=== PATIENT | male | born 1965 | race African-American/Black ===

== ENCOUNTER 2017-03-01 22:31 | Emergency (ER) | payer OTHER ==
--- NOTE | 2017-03-01 22:35 | PDOC ---
Rapid Medical Evaluation Time Seen by Provider: 03/01/17 22:33 Medical Evaluation: 03/01/17 22:33 I have performed a brief in-person evaluation of this patient. The patient presents with a chief complaint of: Sore throat w/ Subjective Fever. Pertinent physical exam findings: n/a I have ordered the following: Rapid Strep/ Throat culture. The patient will proceed to the ED for further evaluation.
[2017-03-01 22:36] VITALS: BP 104/76; PULSE 77; TEMP 97.8; BMI 37.6
--- NOTE | 2017-03-01 23:33 | PDOC ---
History of Present Illness - General Chief Complaint: Sore Throat Stated Complaint: SORE THROAT Time Seen by Provider: 03/01/17 23:23 History Source: Patient Exam Limitations: No Limitations - History of Present Illness Initial Comments: 03/01/17 23:29 51yo Male patient with no significant past medical history presents to ED c/o sore throat. Patient state while at this familys house he felt a sharp pain in his throat that radiated down into his chest. Patient reports symptoms worsen when he lies down. He denies smoking, drug use, alcohol use, recent illness, illness exposure, CP, Abd pain, n/v/d, fever, or any other complaints at this time. Timing/Duration: 24 hours Severity: moderate Modifying Factors: worse with: cold therapy, eating, immobilization, medication , movement, rest, other Associated Symptoms: denies: denies symptoms, chest pain, cough, diaphoresis, fever/chills, headaches, loss of appetite, malaise, nausea/vomiting, rash, seizure, shortness of breath, syncope, weakness, other Aspirin Received prior to arrival: No: no aspirin today, unknown, 81 mg x 1, 81 mg x 2, 81 mg x 3, 81 mg x 4, 325 mg x 1, provided at home, provided by EMS, provided by ED Past History - Travel Traveled outside of the country in the last 30 days: No Close contact w/someone who was outside of country & ill: No - Past Medical History Allergies/Adverse Reactions: Allergies Allergy/AdvReac Type Severity Reaction Status Date / Time No Known Allergies Allergy Verified 03/01/17 22:36 Home Medications: Ambulatory Orders Azithromycin [Zithromax -] 250 mg PO DAILY #4 tablet 03/02/17 Pantoprazole Sodium [Protonix] 40 mg PO DAILY #30 tablet. 03/02/17 COPD: No Other medical history: denies - Suicide/Smoking/Psychosocial Hx Smoking History: Never smoked Review of Systems - Review of Systems Able to Perform ROS?: Yes Is the patient limited Lithuanian proficient: No Constitutional: No: Chills, Fever HEENTM: Yes: Throat Pain. No: Symptoms Reported, See HPI, Eye Pain, Blurred Vision, Tearing, Recent change in vision, Double Vision, Cataracts, Ear Pain, Ocular Prothesis, Ear Discharge, Nose Pain, Nose Congestion, Tinnitus, Nose Bleeding, Hearing Loss, Throat Swelling, Mouth Pain, Dental Problems, Difficulty Swallowing, Mouth Swelling, Other All Other Systems: Reviewed and Negative *Physical Exam - Vital Signs Last Vital Signs Temp Pulse Resp BP Pulse Ox 97.8 F 77 18 104/76 99 03/01/17 22:33 03/01/17 22:33 03/01/17 22:33 03/01/17 22:33 03/01/17 22:33 - Physical Exam General Appearance: Yes: Nourished, Appropriately Dressed. No: Apparent Distress, Mild Distress, Moderate Distress, Severe Distress HEENT: positive: EOMI, TACO, Normal ENT Inspection, Normal Voice, Symmetrical, TMs Normal, Pharynx Normal. negative: Pharyngeal Erythema, Tonsillar Exudate, Tonsillar Erythema, Nasal Congestion, Rhinorrhea, Sinus Tenderness, TM Bulging, TM Dull, TM Erythema Neck: positive: Trachea midline, Normal Thyroid, Supple. negative: Rigid, Decreased range of motion, Stridor, Lymphadenopathy (R), Lymphadenopathy (L), Rigidity, Tender lateral, Tender midline, Thyromegaly Respiratory/Chest: positive: Lungs Clear, Normal Breath Sounds. negative: Chest Tender, Respiratory Distress, Accessory Muscle Use, Labored Respiration, Rapid RR, Rhonchi, Stridor, Wheezing Cardiovascular: positive: Regular Rhythm, Regular Rate Musculoskeletal: positive: Normal Inspection. negative: CVA Tenderness, Decreased Range of Motion, Vertebral Tenderness Extremity: positive: Normal Capillary Refill, Normal Inspection, Normal Range of Motion. negative: Pedal Edema, Swelling, Calf Tenderness, Erythema, Inflammation Integumentary: positive: Normal Color, Dry, Warm Neurologic: positive: automobile mechanic II-XII NML intact, Fully Oriented, Alert, Normal Mood/ Affect, Normal Response, Motor Strength 5/5 *DC/Admit/Observation/Transfer Diagnosis at time of Disposition: GERD (gastroesophageal reflux disease) Qualifiers: Esophagitis presence: esophagitis presence not specified Qualified Code(s): K21.9 - Gastro-esophageal reflux disease without esophagitis Pharyngitis Qualifiers: Pharyngitis/tonsillitis etiology: other specified organisms Qualified Code(s): J02.8 - Acute pharyngitis due to other specified organisms - Discharge Dispostion Disposition: HOME Condition at time of disposition: Stable Admit: No - Prescriptions Prescriptions: Azithromycin [Zithromax -] 250 mg PO DAILY #4 tablet Pantoprazole Sodium [Protonix] 40 mg PO DAILY #30 tablet.dr - Referrals Referrals: Abhi Reese MD [Staff Physician] - Norm Valentino MD [Staff Physician] - - Patient Instructions Printed Discharge Instructions: DI for Gastroesophageal Reflux Disease (GERD), DI for Viral Pharyngitis Additional Instructions: Follow up with Dr. Reese (ENT), call to schedule appointment. Also, call Dr. Valentino (Gastroenterology) regarding possible reflux disease. Take medications as prescribed. Return if symptoms worsen or any concerns for further evaluation. Print Language: IRAQI - Post Discharge Activity
--- NOTE | 2017-03-01 23:37 | PDOC ---
*Physical Exam - Vital Signs Last Vital Signs Temp Pulse Resp BP Pulse Ox 97.8 F 77 18 104/76 99 03/01/17 22:33 03/01/17 22:33 03/01/17 22:33 03/01/17 22:33 03/01/17 22:33 Medical Decision Making - Medical Decision Making 03/01/17 23:36 agree with care from [facility] *DC/Admit/Observation/Transfer Diagnosis at time of Disposition: GERD (gastroesophageal reflux disease), Pharyngitis - Discharge Dispostion Disposition: HOME Condition at time of disposition: Stable - Prescriptions Prescriptions: Azithromycin [Zithromax -] 250 mg PO DAILY #4 tablet Pantoprazole Sodium [Protonix] 40 mg PO DAILY #30 tablet.dr - Referrals Referrals: Norm Valentino MD [Staff Physician] - Abhi Reese MD [Staff Physician] - - Patient Instructions Printed Discharge Instructions: DI for Gastroesophageal Reflux Disease (GERD), DI for Viral Pharyngitis Additional Instructions: Follow up with Dr. Reese (ENT), call to schedule appointment. Also, call Dr. Valentino (Gastroenterology) regarding possible reflux disease. Take medications as prescribed. Return if symptoms worsen or any concerns for further evaluation. Print Language: PARAGUAYAN - Post Discharge Activity
[2017-03-02] MEDS ORDERED: AZITHROMYCIN 250 MG TABLET PO ONE (00:48)
[2017-03-02] MEDS ORDERED: PANTOPRAZOLE 40 MG TABLET (FP) PO ONE (00:48)
[2017-03-02] MEDS ORDERED: PANTOPRAZOLE 40 MG TABLET (FP) ONE (01:08)
[2017-03-02] MEDS ORDERED: AZITHROMYCIN 250 MG TABLET ONE (01:09)
== END 2017-03-02 01:27 | disposition home or self-care (01) ==
LOC: JER 22:31
DX: K21.9 Gastro-esophageal reflux disease without esophagitis (principal); J02.8 Acute pharyngitis due to other specified organisms
CPT/HCPCS: 87070; 87430; 99281-25

== ENCOUNTER 2017-03-02 05:44 | Emergency (ER) | payer OTHER ==
[2017-03-02 06:42] VITALS: BMI 36.9
--- NOTE | 2017-03-02 07:10 | PDOC ---
History of Present Illness - General Chief Complaint: Chest Pain Stated Complaint: CHEST DISCOMFORT Time Seen by Provider: 03/02/17 07:04 - History of Present Illness Initial Comments: 03/02/17 07:13 Mr. Morley is a 51 yo male with no significant pmh who represents for the second time today complaining of pain in his epigastrium. He had originally presented early this morning when the same symptoms kept him awake. He had initially said that these symptoms got worse when he lied down, but now says that he gets no relief from any position. The patient denies chest pain, shortness of breath, headache and dizziness. Denies fever, chills, nausea, vomit, diarrhea and constipation. Denies dysuria, frequency, urgency and hematuria. Allergies: NKDA Past History - Past Medical History Allergies/Adverse Reactions: Allergies Allergy/AdvReac Type Severity Reaction Status Date / Time No Known Allergies Allergy Verified 03/02/17 06:41 Home Medications: Ambulatory Orders Azithromycin [Zithromax -] 250 mg PO DAILY #4 tablet 03/02/17 Pantoprazole Sodium [Protonix] 40 mg PO DAILY #30 tablet. 03/02/17 COPD: No - Suicide/Smoking/Psychosocial Hx Smoking History: Never smoked Have you smoked in the past 12 months: No Information on smoking cessation initiated: No Hx Alcohol Use: No Drug/Substance Use Hx: No Review of Systems - Review of Systems Comments:: 03/02/17 07:17 GENERAL/CONSTITUTIONAL: No fever or chills. No weakness. HEAD, EYES, EARS, NOSE AND THROAT: No change in vision. No ear pain or discharge. No sore throat. CARDIOVASCULAR: No chest pain or shortness of breath RESPIRATORY: No cough, wheezing, or hemoptysis. GASTROINTESTINAL: No nausea, vomiting, diarrhea or constipation. GENITOURINARY: No dysuria, frequency, or change in urination. MUSCULOSKELETAL: No joint or muscle swelling or pain. No neck or back pain. SKIN: No rash NEUROLOGIC: No headache, vertigo, loss of consciousness, or change in strength/ sensation. ENDOCRINE: No increased thirst. No abnormal weight change HEMATOLOGIC/LYMPHATIC: No anemia, easy bleeding, or history of blood clots. ALLERGIC/IMMUNOLOGIC: No hives or skin allergy. *Physical Exam - Vital Signs Last Vital Signs Temp Pulse Resp BP Pulse Ox 98.3 F 72 18 158/79 99 11/22/17 06:31 03/02/17 06:31 03/02/17 06:31 03/02/17 06:31 03/02/17 06:31 - Physical Exam Comments: 03/02/17 07:18 GENERAL: Awake, alert, and fully oriented, in no acute distress HEAD: No signs of trauma, normocephalic, atraumatic EYES: PERRLA, EOMI, sclera anicteric, conjunctiva clear ENT: Auricles normal inspection, hearing grossly normal, nares patent, oropharynx clear without exudates. Moist mucosa NECK: Normal ROM, supple, no lymphadenopathy, JVD, or masses LUNGS: No distress, speaks full sentences, clear to auscultation bilaterally HEART: Regular rate and rhythm, normal S1 and S2, no murmurs, rubs or gallops, peripheral pulses normal and equal bilaterally. ABDOMEN: Soft, nontender, normoactive bowel sounds. No guarding, no rebound. No masses EXTREMITIES: Normal inspection, Normal range of motion, no edema. No clubbing or cyanosis. NEUROLOGICAL: Cranial nerves II through XII grossly intact. Normal speech, normal gait, no focal sensorimotor deficits SKIN: Warm, Dry, normal turgor, no rashes or lesions noted. ED Treatment Course - LABORATORY CBC & Chemistry Diagram: 03/02/17 07:13 03/02/17 07:13 Medical Decision Making - Medical Decision Making 03/02/17 11:10 Patient story concerning with white count and lipase as below. CT was ordered, Radiology confirmed aortic dissection. Patient will be transferred to [facility] for immediate surgery. Dr. Deleon accepting. *DC/Admit/Observation/Transfer Diagnosis at time of Disposition: Aortic dissection Qualifiers: Aortic location: unspecified Qualified Code(s): I71.00 - Dissection of unspecified site of aorta - Discharge Dispostion Disposition: TRANSFER ACUTE CARE/OTHER HOSP Condition at time of disposition: Unchanged/Unknown - Referrals Referrals: STAFF,NOT ON [Primary Care Provider] - - Patient Instructions - Post Discharge Activity
[2017-03-02] MEDS ORDERED: LIDOCAINE VISCOUS 2% ORAL/TOP 20 ML UNIT-DOSE CUP MM ONE (07:19)
[2017-03-02] MEDS ORDERED: MAG HYDROX/AL HYDROX/SIMETH 355 ML ORAL.SUSP PO ONE (07:19)
[2017-03-02] MEDS ORDERED: PANTOPRAZOLE 20 MG TABLET (FP) PO ONE (07:19)
--- NOTE | 2017-03-02 07:21 | PDOC ---
Attending Attestation - HPI HPI: 03/02/17 08:45 The patient is a 51 year old male with no significant PMH of who presents to the emergency department for the second time in this morning with epigastric pain beginning at approximately 12AM this morning. The patient reports being evaluated earlier this morning for subjective fever and throat pain radiating to his chest. He notes receiving an EKG and being discharged for ENT and GI followup. The patient now reports that his pain has returned but is now a pulsating pain more localized in the epigastrium. He reports vomiting last night and notes that his epigastric pain is aggravated by eating. He denies cough or any sick contacts. Allergies: NKA Social history: No reported toxic habits. <Brant Seay - Last Filed: 03/02/17 08:45> - Resident Resident Name: Elijah Noland - ED Attending Attestation I have performed the following: I have examined & evaluated the patient, The case was reviewed & discussed with the resident, I agree w/resident's findings & plan, Exceptions are as noted - Physicial Exam PE: GENERAL: Awake, alert, and fully oriented. Appears uncomfortable. HEAD: No signs of trauma EYES: PERRLA, EOMI, sclera anicteric, conjunctiva clear ENT: Auricles normal inspection, hearing grossly normal, nares patent, oropharynx clear without exudates. Dry mucosa NECK: Normal ROM, supple, no lymphadenopathy, JVD, or masses LUNGS: Breath sounds equal, clear to auscultation bilaterally. No wheezes, and no crackles HEART: Regular rate and rhythm, normal S1 and S2, no murmurs, rubs or gallops ABDOMEN: Soft, +RUQ/epigastric tenderness with guarding, normoactive bowel sounds. No rebound. No masses EXTREMITIES: Normal range of motion, no edema. No clubbing or cyanosis. No cords, erythema, or tenderness NEUROLOGICAL: Cranial nerves II through XII grossly intact. Normal speech, normal gait. SKIN: Warm, Dry, normal turgor, no rashes or lesions noted. - Medical Decision Making Pt with elevated WBC, appears uncomfortable on exam. DDx includes pancreatitis, cholecystitis. Will obtain CT a/p to further evaluate. <Netta Rodriguez - Last Filed: 03/02/17 09:31>
[2017-03-02 07:49] LABS: MCH 29.8 pg (25.7-33.7); MCHC 33.3 g/dl (32.0-35.9); MEAN CELL VOLUME 89.6 fl (80-96); MEAN PLT VOLUME 9.6 fl (7.5-11.1); PLATELET COUNT 251 K/MM3 (134-434); RDW 13.4 % (11.9-15.9); WHITE BLOOD COUNT 20.9 K/mm3 (4.0-10.0)
[2017-03-02] MEDS ORDERED: PANTOPRAZOLE 40 MG TABLET (FP) ONE (08:20)
[2017-03-02] MEDS ORDERED: MAG HYDROX/AL HYDROX/SIMETH 30 ML UNIT-DOSE CUP ONE (08:21)
[2017-03-02] MEDS ORDERED: morphine CARPU-JECT 4 MG/1 ML DISP.SYRIN IVPUSH ONE (08:22)
[2017-03-02] MEDS ORDERED: SODIUM CHLORIDE 1,000 ML IV STA (08:22)
[2017-03-02 08:25] LABS: ALK PHOS 122 U/L (45-117); ANION GAP 8 (8-16); BILIRUBIN,TOTAL 0.7 mg/dL (0.2-1.0); CALCIUM 9.4 mg/dL (8.5-10.1); CO2 26 mmol/L (21-32); CPK 295 IU/L (39-308); CREATININE 1.4 mg/dL (0.7-1.3); GLUCOSE,RANDOM 103 mg/dL (74-106); SGOT/AST 20 U/L (15-37); SGPT/ALT 25 U/L (12-78); TOT PROT 8.5 g/dl (6.4-8.2); TROPONIN I < 0.02 ng/ml (0.00-0.05)
[2017-03-02] MEDS ORDERED: morphine SULFATE 4 MG/ML VIAL ONE (08:33)
[2017-03-02 08:39] VITALS: TEMP 98.5
[2017-03-02 09:23] LABS: PLATELET ESTIMATE ADEQUATE; TOTAL CELLS COUNTED 100
[2017-03-02 12:23] VITALS: BP 129/83; PULSE 90
--- NOTE | 2017-03-10 13:07 | EKG ---
Test Reason : Blood Pressure : / mmHG Vent. Rate : 065 BPM Atrial Rate : 065 BPM P-R Int : 146 ms QRS Dur : 092 ms QT Int : 416 ms P-R-T Axes : 051 027 031 degrees QTc Int : 432 ms NORMAL SINUS RHYTHM NORMAL ECG NO PREVIOUS ECGS AVAILABLE Confirmed by JJ GARCIA MD ([id number]) on 03/10/2017 1:07:15 PM Referred By: Confirmed By:JJ GARCIA MD
== END 2017-03-02 12:28 | disposition short-term general hospital (02) ==
LOC: JER 05:44
PROC: 3E033NZ Introduction of Analgesics, Hypnotics, Sedatives into Peripheral Vein, Percutaneous Approach (ICD-10-PCS; principal; 2017-03-02)
DX: I71.00 Dissection of unspecified site of aorta (principal); K76.0 Fatty (change of) liver, not elsewhere classified; N40.0 Benign prostatic hyperplasia without lower urinary tract symptoms
CPT/HCPCS: 36415; 71250-TC; 74177-TC; 80053; 82550; 82553; 83605; 83690; 84484; 85025; 86850; 86900; 86901; 93005; 93010; 99285-25